=== PATIENT | male | born 1975 | race Caucasian/White ===

== ENCOUNTER 2017-05-07 22:03 | Emergency (ER) | payer MEDICAID ==
[2017-05-08] MEDS: ACETAMINOPHEN 325 MG TAB PO (02:33)
[2017-05-08] MEDS: IBUPROFEN 600 MG TAB PO (02:33)
== END 2017-05-08 02:40 | disposition home or self-care (01) ==
LOC: FTE 22:03
DX: J20.9 Acute bronchitis, unspecified (principal)
CPT/HCPCS: 99283; Z7502

== ENCOUNTER 2018-04-06 15:36 | Emergency (ER) | payer MEDICAID ==
[2018-04-06] MEDS: IBUPROFEN 600 MG TAB PO (17:29)
[2018-04-06 17:39] LABS: ADD UMIC NO; UR ASCORBIC ACID 20 mg/dL (NEGATIVE); UR BILIRUBIN (Dip) NEGATIVE (NEGATIVE); UR BLOOD (Dip) NEGATIVE (NEGATIVE); UR CLARITY CLEAR (CLEAR); UR COLOR YELLOW (YELLOW); UR GLUCOSE (Dip) NEGATIVE (NEGATIVE); UR KETONES (Dip) NEGATIVE (NEGATIVE); UR LEUKOCYTE ESTERASE (Dip) NEGATIVE Leu/ul (NEGATIVE); UR NITRITE (Dip) NEGATIVE (NEGATIVE); UR SPECIFIC GRAVITY (Dip) 1.015 (1.003-1.030); UR TOTAL PROTEIN (Dip) NEGATIVE (NEGATIVE); UR UROBILINOGEN (Dip) NEGATIVE (NEGATIVE)
== END 2018-04-06 20:45 | disposition home or self-care (01) ==
LOC: FTE 15:36
DX: R59.0 Localized enlarged lymph nodes (principal)
CPT/HCPCS: 76870; 81003; 87591; 99284-25